=== PATIENT | female | born 1975 | race Caucasian/White ===

== ENCOUNTER 2024-12-24 18:00 | Observation (INO) ==
[2024-12-24] MEDS: KETOROLAC 30 MG/ML VIAL IV ONE (18:30)
[2024-12-24] MEDS: ONDANSETRON 4 MG/2 ML VIAL IV ONE ×2 (18:30→19:58)
[2024-12-24] MEDS: 0.9 % SODIUM CHLORIDE 1,000 ML IV ONE ×2 (18:33→19:59)
[2024-12-24] MEDS: HYDROmorphone 1 MG/ML SYRINGE IV ONE (18:35)
[2024-12-24 18:46] LABS: Basophils # (Auto) 0.03 K/mcL (0.00-0.30); Basophils % (Auto) 0.4 % (0.0-2.0); Eosinophils # (Auto) 0.04 K/mcL (0.00-0.70); Eosinophils % (Auto) 0.5 % (0.0-7.0); Hematocrit 39.2 % (34.1-44.9); Hemoglobin 12.2 g/dL (11.2-15.7); Lymphocytes # (Auto) 1.69 K/mcL (1.50-4.80); Lymphocytes % (Auto) 22.3 % (15.5-49.0); Mean Corpuscular HGB Conc 31.1 g/dL (31.0-36.0); Mean Platelet Volume 9.7 fL (8.8-12.5); Monocytes # (Auto) 0.46 K/mcL (0.10-0.90); Monocytes % (Auto) 6.1 % (1.0-12.0); Neutrophils % (Auto) 70.6 % (38.0-78.0); Platelet Count 310 K/mcL (140-440); RBC 4.56 M/mcL (3.59-5.38); Red Cell Distribution Width 12.7 % (11.5-14.5); WBC 7.6 K/mcL (4.5-11.0)
[2024-12-24 19:07] LABS: ALT/SGPT 36 U/L (<40); AST/SGOT 30 U/L (<32); Albumin 4.1 gm/dL (3.2-5.2); Albumin/Globulin Ratio 1.9 (1.0-2.3); Alkaline Phosphatase 77 U/L (39-117); Bilirubin,Total 0.4 mg/dL (0.1-1.0); Blood Urea Nitrogen 11 mg/dL (6-20); Calcium 9.7 mg/dL (8.6-10.4); Carbon Dioxide 25 mmol/L (22-30); Chloride 105 mmol/L (96-108); Globulin 2.2 gm/dL (2.2-3.7); Glomerular Filtration Rate 87; Glucose 121 mg/dL (70-105); Potassium 3.8 mmol/L (3.3-5.1); Sodium 140 mmol/L (133-145)
[2024-12-24] MEDS ORDERED: ONDANSETRON 4 MG/2 ML VIAL IV PRN ×2 (20:49→20:56)
[2024-12-24] MEDS: METOCLOPRAMIDE 10 MG/2 ML VIAL IV ONE (21:00)
[2024-12-24] MEDS: diphenhydrAMINE 50 MG/ML VIAL IV ONE (21:01)
[2024-12-24 21:22] LABS: Appearance,Urine Clear (Clear); Bilirubin,Urine Small mg/dL (Negative); Color,Urine Yellow; Glucose,Urine (UA) Negative (Negative); Ketones,Urine 40 mg/dL (Negative); Leukocyte Esterase,Urine Negative /uL (Negative); Mucus,Urine Mod /hpf; Nitrate,Urine Negative (Negative); PH,Urine 5.5 (5.0-9.0); Protein,Urine Trace mg/dL (Negative); Specific Gravity,Urine >= 1.030 (1.000-1.035); Urine Blood Large ery/mcL (Negative); Urine RBC 20 /hpf (0-3); Urine Squamous Epithelial Cell 2 /hpf (0-4); Urine WBC 2 /hpf (0-4); Urobilinogen,Urine Normal
[2024-12-24] MEDS: LACTATED RINGERS 1,000 ML IV SCH (22:25)
[2024-12-24] MEDS: 0.9 % SODIUM CHLORIDE 10 ML SYRINGE IV SCH (22:46)
[2024-12-24] MEDS: DOCUSATE SODIUM 100 MG CAPSULE PO SCH (23:08)
[2024-12-24] MEDS: SENNOSIDES 1 TABLET PO SCH (23:08)
[2024-12-25 06:20] LABS: Basophils # (Auto) 0.02 K/mcL (0.00-0.30); Basophils % (Auto) 0.3 % (0.0-2.0); Eosinophils # (Auto) 0.03 K/mcL (0.00-0.70); Eosinophils % (Auto) 0.5 % (0.0-7.0); Hematocrit 34.9 % (34.1-44.9); Hemoglobin 11.1 g/dL (11.2-15.7); Lymphocytes # (Auto) 1.88 K/mcL (1.50-4.80); Lymphocytes % (Auto) 30.9 % (15.5-49.0); Mean Cell Volume 86.6 fL (80.0-100.0); Mean Corpuscular HGB Conc 31.8 g/dL (31.0-36.0); Monocytes # (Auto) 0.37 K/mcL (0.10-0.90); Monocytes % (Auto) 6.1 % (1.0-12.0); Neutrophils % (Auto) 62.2 % (38.0-78.0); Platelet Count 259 K/mcL (140-440); RBC 4.03 M/mcL (3.59-5.38); Red Cell Distribution Width 12.7 % (11.5-14.5); WBC 6.1 K/mcL (4.5-11.0)
[2024-12-25 06:39] LABS: ALT/SGPT 29 U/L (<40); AST/SGOT 22 U/L (<32); Albumin 3.5 gm/dL (3.2-5.2); Albumin/Globulin Ratio 1.8 (1.0-2.3); Alkaline Phosphatase 62 U/L (39-117); Bilirubin,Direct < 0.2 mg/dL (0-0.3); Bilirubin,Total 0.3 mg/dL (0.1-1.0); Blood Urea Nitrogen 12 mg/dL (6-20); Calcium 9.1 mg/dL (8.6-10.4); Carbon Dioxide 23 mmol/L (22-30); Chloride 108 mmol/L (96-108); Globulin 1.9 gm/dL (2.2-3.7); Glomerular Filtration Rate 108; Glucose 93 mg/dL (70-105); Lactate Dehydrogenase 144 U/L (135-225); Phosphorous 3.6 mg/dL (2.5-4.5); Potassium 4.1 mmol/L (3.3-5.1); Sodium 140 mmol/L (133-145); Triglycerides 158 mg/dL (<150); Uric Acid 3.6 mg/dL (2.5-8.0)
[2024-12-25] MEDS: HYDROmorphone 0.5 MG/0.5 ML SYRINGE IV PRN (07:10)
[2024-12-25] MEDS ORDERED: IOVERSOL 50 ML VIAL IJ ONE (07:59)
[2024-12-25] MEDS ORDERED: SODIUM CHLORIDE 0.9% IV SCH (08:38)
[2024-12-25] MEDS ORDERED: GENTAMICIN SULFATE IV SCH (08:38)
[2024-12-25] MEDS ORDERED: DEXAMETHASONE 10 MG/ML VIAL ONE (12:28)
[2024-12-25] MEDS ORDERED: ONDANSETRON 4 MG/2 ML VIAL ONE (12:28)
[2024-12-25] MEDS ORDERED: LIDOCAINE 2% PF 5 ML VIAL ONE (12:28)
[2024-12-25] MEDS ORDERED: MIDAZOLAM 2 MG/2 ML VIAL ONE (12:28)
[2024-12-25] MEDS ORDERED: PROPOFOL 200 MG/20 ML VIAL IV ONE (12:28)
[2024-12-25] MEDS ORDERED: KETAMINE 50 MG/ML Syringe IV ONE (12:28)
[2024-12-25] MEDS ORDERED: KETOROLAC 30 MG/ML VIAL ONE (12:28)
[2024-12-25] MEDS ORDERED: FAMOTIDINE/PF 20 MG/2 ML VIAL IV ONE (12:29)
[2024-12-25] MEDS ORDERED: METOCLOPRAMIDE 10 MG/2 ML VIAL ONE (12:29)
[2024-12-25] MEDS ORDERED: ePHEDrine 50 MG/5 ML SYRINGE (ANEST) IV ONE (12:29)
[2024-12-25] MEDS: ceFAZolin 2 GM in DEXTROSE 5% IN WATER 50 ML IV SCH (12:38)
[2024-12-25] MEDS: SCOPOLAMINE 1 PATCH PATCH TOPICAL ONE (12:46)
[2024-12-25] MEDS ORDERED: HYDROmorphone 0.5 MG/0.5 ML SYRINGE IV PRN (13:22)
[2024-12-25] MEDS ORDERED: DROPERIDOL 5 MG/2 ML VIAL IV PRN (13:22)
[2024-12-25] MEDS ORDERED: IPRATROPIUM/ALBUTEROL 3 ML AMPUL.NEB NEB PRN (13:22)
[2024-12-25] MEDS ORDERED: fentaNYL 100 MCG/2 ML VIAL IV PRN (13:22)
[2024-12-25] MEDS: LIDOCAINE 2% URO-JET 10 ML JEL.PF.APP UR ONE (13:30)
[2024-12-25] MEDS ORDERED: traMADol 50 MG TABLET PO PRN (13:35)
[2024-12-25] MEDS: LACTATED RINGERS 1,000 ML IV SCH (15:28)
[2024-12-25 16:15] VITALS: TEMP 97.9; O2SAT 94
== END 2024-12-25 17:34 | disposition home or self-care (01) ==
LOC: ED 18:00 → MEDSUR 18:00
PROVIDERS: ADMIT Urology; ATTEND Urology